=== PATIENT | female | born 1980 | race African-American/Black ===

== ENCOUNTER → 2019-06-15 | Day surgery (SDC) | payer OTHER ==
--- NOTE | 2019-06-16 16:11 | PATH ---
Cytology Non-Gynecological Report Patient Name: SANDER ARNDT [facility]. Rec. #: [id number] /Age/Gender: 1980 (Age: 38) / F Account: [id number] Location: RADIOLOGY INTER Taken: 06/15/2019 Received: 06/15/2019 Reported: 06/16/2019 Physicians: Aditi Espinosa M.D. Specimen(s) Received LEFT THYROID FNA Clinical History Left, 3.65 x 2.88 x 2.74 cm Final Diagnosis THYROID, LEFT, FINE NEEDLE ASPIRATION: SATISFACTORY FOR EVALUATION. B[place] CLASS II: BENIGN. CYTOLOGIC FINDINGS ARE CONSISTENT WITH A BENIGN FOLLICULAR NODULE. SMALL FOLLICULAR CELLS WITH FOCAL REACTIVE CHANGES IN A BACKGROUND OF SOME COLLOID AND RARE MACROPHAGES PRESENT. Electronically Signed Genie Bautista M.D. Gross Description Received are eight direct smears, four of which are air-dried and Diff-Quik stained, and four of which are alcohol fixed and Pap stained. Also received is 20 ml of bloody formalin from which one cellblock is prepared.
== END | disposition home or self-care (01) ==
LOC: JRADIR 09:55
PROVIDERS: ATTEND Family Medicine
PROC: 0G9H3ZX Drainage of Right Thyroid Gland Lobe, Percutaneous Approach, Diagnostic (ICD-10-PCS; principal; 2019-06-15)
DX: E04.1 Nontoxic single thyroid nodule (principal)
CPT/HCPCS: 76942; 88173; 88305-TC